=== PATIENT | female | born 2000 | race Caucasian/White ===

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

== ENCOUNTER 2022-10-09 07:00 | Outpatient (NON) | payer OTHER, SELFPAY | END 2022-10-09 07:01 | disposition home or self-care (01) | PROVIDERS: PCP Pediatrics; Visit Provider Nurse Practitioner | DX: L91.0 Hypertrophic scar (principal) | CPT/HCPCS: 88305 ==